=== PATIENT | female | born 1985 | race Caucasian/White ===

== ENCOUNTER 2018-07-04 18:46 | Emergency (ER) | payer MEDICAID, SELFPAY ==
[2018-07-04 18:47] VITALS: BP 143/90; PULSE 89; RESP 16; TEMP 36.8; O2SAT 100; BMI 23.3
--- NOTE | 2018-07-04 19:26 | ED.VISSUMM ---
- ER Visit Summary Date of Service: 07/04/18 Chief Complaint: [] Left upper dental pain with left cheek swelling for a few days History of Present Illness: The patient is a 32 F [] known fracture of 1 of her left upper teeth she reports for the last few days she has had pain and some very mild swelling to the left cheek she has been seen in the past by the [facility] no other complaints no fever no cough no difficulty swallowing or breathing are seen denies Physical Examination: [] 143/90 afebrile General, no distress resting comfortably HEENT is generally unremarkable, there is percussion tenderness to the left upper teeth some of them have been removed and one is cracked and decayed the gingival gumline is intact the floor the mouth is clear normal there is no stridor or drooling swallowing speech is normal she complains of very mild pain to the left cheek there is no facial swelling her HEENT eye function vision is normal the rest of exam is unremarkable The neck is supple no adenopathy Cardiovascular, regular rate and rhythm Lungs, clear bilateral Abdomen, soft nontender Extremities, no clubbing cyanosis or edema Neurologic, awake alert answering questions appropriately moving all 4 extremities Test Results: [] Emergency Department Course and Treatment: [] Explained the above to her she was started on Pen-Vee K and Paul have explained she needs to see dental services for this she will make those arrangements through her prior dentist and return for change in symptoms understand if she has increased swelling or any other complications she is to return for evaluation and that she must be seen by dental services Treatment Plan: [] Disposition: [] Home stable Impression: [] Dental decay dental infection This note was generated with [employer] dictation software. It may contain incorrect words, spelling, and punctuation that were not noted in review of the chart prior to signing ED Disposition - Plan for ED Patient: Chief Complaint: Dental Referrals: Care Physician,No Primary [Primary Care Provider] -
--- NOTE | 2018-07-04 19:28 | ED.DEP ---
ED Disposition - Plan for ED Patient: Chief Complaint: Dental Instructions: ED Cavity Dental Prescriptions: Naproxen [Naprosyn] 500 mg PO BID PRN #20 tab Penicillin V Potassium 500 mg PO 4X/DAY #40 tab Referrals: Care Physician,No Primary [Primary Care Provider] -
[2018-07-04] MEDS: Penicillin Vk 250 MG Tablet 500 MG PO (19:29)
[2018-07-04] MEDS: Naproxen 500 MG Tablet PO (19:29)
[2018-07-04 19:30] VITALS: PULSE 88; RESP 16; O2SAT 98
== END 2018-07-04 19:41 | disposition home or self-care (01) ==
LOC: ED 19:39
PROVIDERS: Emergency Provider Emergency Medicine
DX: K04.7 Periapical abscess without sinus (principal); K02.9 Dental caries, unspecified; S02.5XXA Fracture of tooth (traumatic), initial encounter for closed fracture; X58.XXXA Exposure to other specified factors, initial encounter; Y93.9 Activity, unspecified; Y92.9 Unspecified place or not applicable; Y99.9 Unspecified external cause status; Z79.899 Other long term (current) drug therapy
CPT/HCPCS: 99283

== ENCOUNTER 2018-12-19 22:31 | Emergency (ER) | payer MEDICAID, SELFPAY ==
[2018-12-19 22:34] VITALS: BP 147/93; PULSE 109; RESP 16; TEMP 36.7; O2SAT 100; BMI 24.5
--- NOTE | 2018-12-19 23:05 | ED.VISSUMM ---
- ER Visit Summary Date of Service: 12/19/18 Chief Complaint: Left shoulder pain History of Present Illness: The patient is a 33 F who presents with left shoulder pain that has been getting worse over the past week. Patient denies any specific trauma or injury. Patient states it feels like a pulled muscle which she has had in the past. Patient states the pain is sharp and pressure sensation. Patient states the pain is worse with movement. States nothing has helped the pain. Patient denies any paresthesias or weakness. Patient states pain radiates into her scapula and left cervical paraspinal muscles and left trapezius muscles. Physical Examination: Vital signs are stable. Patient is afebrile. Patient is in no acute distress. Musculoskeletal exam reveals tenderness and spasm over the left trapezius muscle and parascapular muscles. There is no bony crepitance or step-off. There is no deformity noted. Range of motion of the left shoulder was limited in abduction and external rotation secondary to pain. Strength is 5/5 bilaterally. There are no sensory deficits noted. There is no midline cervical spine tenderness. There is good range of motion of the cervical spine. Emergency Department Course and Treatment: Patient was advised that this most likely is a muscular strain. Patient was given prescriptions for Naprosyn and Flexeril. Patient was instructed to follow-up with her primary care physician in 5 to 7 days. Patient understood and was agreeable with the plan. All questions were answered. Disposition: Discharge home Impression: Left shoulder muscle strain This note was generated with [employer] dictation software. It may contain incorrect words, spelling, and punctuation that were not noted in review of the chart prior to signing ED Disposition - Plan for ED Patient: Disposition: Home or Assisted Living Diagnosis: Muscle strain of left shoulder region Instructions: ED Strain Muscle Ext Prescriptions: Cyclobenzaprine [Flexeril] 10 mg PO QHS PRN PRN #10 tab PRN Reason: Muscle Spasm Naproxen [Naprosyn] 500 mg PO BID PRN #20 tab Referrals: Care Physician,No Primary [Primary Care Provider] -
[2018-12-19 23:18] VITALS: PULSE 84; RESP 16; O2SAT 100
--- NOTE | 2018-12-19 23:19 | ED.RN ---
THIS NURSE REVIEWED D/C INSTRUCTIONS WITH PT. PT VERBALIZED UNDERSTANDING OF INSTRUCTIONS. PT DENIES FURTHER NEEDS OR QUESTIONS AT THIS TIME. PT AMBULATES FROM ROOM ON OWN WITHOUT ASSISTANCE FROM STAFF
== END 2018-12-19 23:20 | disposition home or self-care (01) ==
PROVIDERS: Emergency Provider Emergency Medicine
DX: S46.912A Strain of unspecified muscle, fascia and tendon at shoulder and upper arm level, left arm, initial encounter (principal); M54.2 Cervicalgia; M54.9 Dorsalgia, unspecified; X58.XXXA Exposure to other specified factors, initial encounter; Y93.9 Activity, unspecified; Y92.9 Unspecified place or not applicable; Y99.9 Unspecified external cause status; F90.9 Attention-deficit hyperactivity disorder, unspecified type; Z72.0 Tobacco use; Z79.899 Other long term (current) drug therapy
CPT/HCPCS: 99282

== ENCOUNTER 2020-05-02 16:26 | Emergency (ER) | payer MEDICAID, SELFPAY ==
[2020-05-02 16:27] VITALS: BP 132/88; PULSE 89; RESP 16; TEMP 36.3; O2SAT 100; BMI 22.5
--- NOTE | 2020-05-02 16:38 | ED.VIS.GEN ---
History of Present Illness Chief Complaint: Edema Detail of Chief Complaint: dental pain/facial swelling Informant: Patient Onset: Yesterday Narrative: 34-year-old female with no significant past medical history presents with complaints of dental pain and right cheek swelling. She states last night her right cheek started to feel tender and progressively over the evening and this morning it became swollen. She does note pain in the right upper gum near her cracked molar. She states she has an extensive history of dental caries. Denies fevers, chills, nausea, vomiting, or difficulty swallowing or breathing. Past Medical History - Allergies and Home Meds Allergies/Adverse Reactions: Allergies No Known Allergies Allergy (Verified 05/02/20 16:26) Primary Care Physician: Care Physician,No Primary [Primary Care Provider] - Past Medical History: - - ADHD Smoking Status: Current every day smoker Review of Systems General: Denies: Chills, Fever, Sweats Eyes: Denies: Visual changes - bilaterally, Diplopia ENT: Reports: - - cheek swelling. Denies: Rhinorrhea, Sore throat Cardiovascular: Denies: Chest pain, Palpitations Respiratory: Denies: Dyspnea, Cough, Dyspnea on exertion Gastrointestinal: Denies: Abdominal pain, Nausea, Vomiting, Diarrhea, Melena, Hematochezia Genitourinary: Denies: Dysuria, Hematuria, Frequency Musculoskeletal: Denies: Back pain, Extremity Pain Skin: Denies: Rash, Wounds Neurological: Denies: Headache, Weakness, Numbness Allergy: Denies: Swelling of the mouth, Swelling of the tongue Physical Exam Vital Signs/Narrative: Vital Signs Temp Pulse Resp BP Pulse Ox 05/02/20 16:27 97.3 F L 89 16 132/88 H 100 General: Well nourished, Well developed, No Acute Distress Head: Normocephalic, Atraumatic Eyes: Perrl, EOMI ENT: Moist mucous membranes, - - Skin appears normal, swelling of the right cheek, diffuse dental caries and tenderness over the right upper gumline near the back molar, no palpable abscess, no trismus or tongue elevation, sublingual space is soft, airway intact, neck has good range of motion. Neck: Supple, Nontender Cardiovascular: Regular rate, Regular rhythm, No murmurs Respiratory: No distress, CTA bilaterally, Chest nontender Diagnostic/Tx/Re-eval - Medical Decision Making Presented with dental pain and right cheek swelling. She appears well nontoxic. Vital signs within normal limits. Exam shows extensive dental caries and tenderness of the right upper gumline near her back molar which is partially cracked. The cheek is swollen but the airway is intact. No palpable abscess that requires I&D. She will be treated with Augmentin and needs to follow-up with a dentist. Given dental referral sheet. Discussed return precautions. She was agreeable and discharged home in stable condition. ED Disposition - Plan for ED Patient: Disposition: Home or Assisted Living Diagnosis: Dental caries Instructions: ED CAVITY Dental Referrals: Care Physician,No Primary [Primary Care Provider] -
[2020-05-02] MEDS: Amox/Clavulanate 875 MG Tablet PO (16:54)
== END 2020-05-02 16:54 | disposition home or self-care (01) ==
LOC: ED 16:52
PROVIDERS: Emergency Provider Physician Assistant
DX: K02.9 Dental caries, unspecified (principal); F17.200 Nicotine dependence, unspecified, uncomplicated; F90.9 Attention-deficit hyperactivity disorder, unspecified type
CPT/HCPCS: 99283

== ENCOUNTER 2021-04-09 01:58 | Emergency (ER) | payer MEDICAID, SELFPAY ==
[2021-04-09 01:59] VITALS: BP 146/104; PULSE 124; RESP 16; TEMP 2.6; TEMP 36.7; O2SAT 100; BMI 23.3
[2021-04-09] MEDS: oxyCODONE 5 MG Tablet PO (03:54)
[2021-04-09] MEDS: Amox/Clavulanate 875 MG Tablet PO (03:54)
--- NOTE | 2021-04-09 03:56 | ED.VIS.DENTA ---
HPI History of Present Illness Chief Complaint: Dental Narrative Narrative: Patient presenting with right-sided dental pain. She states she had a problem with her tooth previously and it was half removed. She notes that she has intermittent swelling in her right mandible since then. She usually gets Augmentin and this helps her. She denies difficulty swallowing or breathing. Has not had a fever. She [facility] PFSH PFS Home Medications lisdexamfetamine [Vyvanse] 50 mg PO DAILY 07/04/18 [History Last Taken Unknown] amoxicillin-pot clavulanate [Augmentin] 1 tab PO BID #20 tab 04/09/21 [Rx Last Taken Unknown] naproxen [Naprosyn] 500 mg PO BID PRN #30 tab 04/09/21 [Rx Last Taken Unknown] Allergy/AdvReac Type Severity Reaction Status Date / Time No Known Allergies Allergy Verified 04/09/21 01:58 Social History Smoking Status: Current every day smoker tobacco type: cigarettes ROS ROS ED Constitutional Constitutional ED: Denies chills or fever(s) Eyes Eyes: Denies blurry vision or change in vision ENT ENT ED: Reports other Details: Right dental pain on the mandible ; Denies rhinorrhea or sore throat Cardiovascular Cardiovascular: Denies chest pain or palpitations Respiratory/Chest Respiratory/Chest: Denies cough or dyspnea Gastrointestinal Gastrointestinal: Denies abdominal pain or nausea Genitourinary Genitourinary ED: Denies dysuria or hematuria Musculoskeletal Musculoskeletal: Denies arthralgias or myalgias Integumentary Denies abscess or rash Neurologic Neurologic: Denies headache(s) EXAM Physical Exam Const Vital Signs: 04/09/21 01:59 04/09/21 03:58 Temperature 36.7 F L Temperature Source Oral Pulse Rate 124 H 95 Respiratory Rate 16 18 Blood Pressure 146/104 H 132/72 H Blood Pressure Mean 118 Pulse Ox 100 Oxygen Delivery Method Room Air Positive well nourished General Appearance ED: NAD HEENT Reports TM's clear HEENT Narrative: Percussion tenderness of the right posterior tooth. Other teeth have been removed it hard to tell which number this is. It is not a molar. There is adjacent swelling over the right mandible. There is no fluctuance. Oropharynx is patent without stridor. Tongue is not swollen. No sublingual edema. trauma Tympanic Membrane ED: Yes TM's clear Eyes PERRL and EOMs intact bilaterally Neck no lymphadenopathy and supple Resp normal respiratory effort and clear to auscultation bilaterally Cardio regular rate and regular rhythm Extremity normal to inspection Neuro oriented x3 Sensorium / Orientation: alert Skin no rashes or lesions noted MDM MDM MDM Narrative Medical decision making narrative: Patient presenting with right jaw pain and history of dental infection. 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 Patient will be given oxycodone in the ED and prescribed Augmentin for home as this is worked for her in the past. She will be given a prescription for Naprosyn as well.She has no signs of Randy's angina. Impression: #1 dental abscess Discharge Plan Triage Chief Complaint: Dental ED Provider: Tremaine Kapoor Dx/Rx/DC Orders Instructions: ED Dental Abscess Prescriptions: New naproxen [Naprosyn] 500 mg tablet 500 mg PO BID PRN (Reason: pain) Qty: 30 RF: 0 amoxicillin-pot clavulanate [Augmentin] 875-125 mg tablet 1 tab PO BID Qty: 20 RF: 0 No Action Vyvanse 50 MG capsule 50 mg PO DAILY RF: 0 Primary Care Provider: Care Physician,No Primary Referrals: Care Physician,No Primary [Primary Care Provider] - Disposition Disposition: Home, Self Care Discharge Date/Time: 04/09/21 03:59
[2021-04-09 03:58] VITALS: BP 132/72; PULSE 95; RESP 18
== END 2021-04-09 03:59 | disposition home or self-care (01) ==
PROVIDERS: Emergency Provider Student in an Organized Health Care Education/Training Program
DX: K04.7 Periapical abscess without sinus (principal); F17.210 Nicotine dependence, cigarettes, uncomplicated
CPT/HCPCS: 99283

== ENCOUNTER 2022-11-21 22:22 | Emergency (ER) | payer MEDICAID, SELFPAY ==
[2022-11-21 22:24] VITALS: BP 155/90; PULSE 85; RESP 16; TEMP 36.4; O2SAT 98; BMI 35.4
--- NOTE | 2022-11-21 22:34 | ED.VIS.DENTA ---
HPI History of Present Illness Chief Complaint: Dental Informant: patient Narrative Narrative: Patient's been having dental pain on the right lower jaw. This flared up for the last 2 or 3 days. She states she has a remnant of the tooth in her jaw from surgery 8 years ago. She was told that they will try to get rid of most of her tooth but they could not get it all out without breaking her jaw and felt that this was not appropriate at the time. She has had occasional flareups of pain and infection since. This 1 started about 2 3 days ago. She has a little swelling of the jaw. She did go to urgent care today. She was given amoxicillin. But she states she was not given anything for pain. She is just hurting a lot. She is able to swallow eat and drink. No fevers or chills. No swelling of the tongue trouble speaking or handling secretions. She has been taking Tylenol and Motrin today. She has taken a fair amount but has not exceeded 4 g of Tylenol or 2400 of Motrin yet. We discussed these limits. PFSH PFSH Home Medications lisdexamfetamine 50 mg capsule (Vyvanse) 50 mg PO DAILY 07/04/18 [History Last Taken Unknown] amoxicillin 875 mg-potassium clavulanate 125 mg tablet (Augmentin) 1 tab PO BID #20 tabs 04/09/21 [Rx Last Taken Unknown] naproxen 500 mg tablet (Naprosyn) 500 mg PO BID PRN pain #30 tabs 04/09/21 [Rx Last Taken Unknown] tramadol 50 mg tablet 50 mg PO Q6H PRN pain 2 days #8 tabs 11/21/22 [Rx Last Taken Unknown] Allergy/AdvReac Type Severity Reaction Status Date / Time No Known Allergies Allergy Verified 11/21/22 22:26 Social History Smoking Status: Current every day smoker tobacco type: cigarettes ROS ROS ED Constitutional Constitutional ED: Denies chills, fever(s) or subjective ENT ENT ED: Reports other Details: See history of present illness ; Denies rhinorrhea or sore throat Cardiovascular Cardiovascular: Denies chest pain Respiratory/Chest Respiratory/Chest: Denies cough or dyspnea Gastrointestinal Gastrointestinal: Denies nausea or vomiting Musculoskeletal Musculoskeletal: Denies neck pain Integumentary Denies rash Neurologic Neurologic: Denies headache(s) Hematologic/Lymphatic Hematologic/Lymphatic: Denies easy bleeding or easy bruising Allergic/Immunologic Allergic/Immunologic ED: Denies tongue swelling EXAM Physical Exam Narrative Exam Narrative: Patient is awake and alert. She looks like she is a little bit uncomfortable. HEENT: She does have some visible but subtle swelling over the face externally. But no erythema. Examination of her jaw does show significantly red and inflamed gums on the right. Floor the mouth is soft. There is no drainable abscess. Voice is normal. Handling secretions is normal. This is certainly consistent with an infection but I do not see sign of Ludewig's at all at this time. Neck shows no lymphadenopathy or stridor Heart is regular without murmur gallop or rub. Lungs are clear bilaterally Abdomen is nontender Skin shows no rash or pallor. Const Vital Signs: 11/21/22 22:24 Temperature 97.6 F L Temperature Source Temporal Pulse Rate 85 Respiratory Rate 16 Blood Pressure 155/90 H Blood Pressure Mean 111 Pulse Ox 98 Oxygen Delivery Method Room Air MDM MDM MDM Narrative Medical decision making narrative: Patient does have significant findings consistent with infection. I explained she really needs to stay on those antibiotics. She should not stop these. She is already calling a dentist to get in. She has been taking Tylenol Motrin. I did access her online prescribing reference that has absolutely no controlled substances in the last 2 years. I think she is actually seeking pain relief but she is not seeking pain medication. This is an uncommon case where I actually will give her a few pain meds. Discharge Plan Triage Chief Complaint: Dental ED Provider: Darius Hall Dx/Rx/DC Orders Clinical Impression: Dental infection Instructions: ED Dental Abscess Prescriptions: New tramadol 50 mg tablet 50 mg PO Q6H PRN (Reason: pain) 2 Days Qty: 8 0RF No Action Vyvanse 50 MG capsule 50 mg PO DAILY naproxen [Naprosyn] 500 mg tablet 500 mg PO BID PRN (Reason: pain) Qty: 30 0RF amoxicillin-pot clavulanate [Augmentin] 875-125 mg tablet 1 tab PO BID Qty: 20 0RF Primary Care Provider: Care Physician,No Primary Referrals: Care Physician,No Primary [Primary Care Provider] - Activity Restrictions/Additional Instructions: Follow-up with dentist as soon as possible. A list will be provided for extra options Disposition Disposition: Home, Self Care
[2022-11-21] MEDS: traMADol 50 MG Tablet PO (22:49)
== END 2022-11-21 22:51 | disposition home or self-care (01) ==
LOC: ED 22:49
PROVIDERS: Emergency Provider Emergency Medicine; Visit Provider Emergency Medicine
DX: K04.7 Periapical abscess without sinus (principal); F17.210 Nicotine dependence, cigarettes, uncomplicated
CPT/HCPCS: 99283